=== PATIENT | female | born 1985 | race African-American/Black ===

== ENCOUNTER 2018-09-23 20:33 | Emergency (ER) | payer OTHER ==
[~2018-09-23] VITALS: Ht 160 cm; Wt 107.5 kg
[2018-09-23 21:02] LABS: URINE BILIRUBIN NEGATIVE (Negative); URINE BLOOD NEGATIVE (Negative); URINE CLARITY SL CLOUDY; URINE COLOR YELLOW; URINE GLUCOSE-RANDOM* NEGATIVE (Negative); URINE KETONES NEGATIVE (Negative); URINE LEUKOCYTES-REFLEX NEGATIVE (Negative); URINE NITRITE-REFLEX NEGATIVE (Negative); URINE PROTEIN (DIPSTICK) NEGATIVE (Negative); URINE SPECIFIC GRAVITY >= 1.030 (1.005-1.035); URINE UROBILINOGEN 0.2 E.U./dl (0.2-1.0)
[2018-09-23 22:45] VITALS: BP 131/86
== END 2018-09-23 22:46 | disposition home or self-care (01) ==
LOC: ER 20:33
PROVIDERS: Emergency Medicine
DX: O26.851 Spotting complicating pregnancy, first trimester (principal); O26.891 Other specified pregnancy related conditions, first trimester; M54.9 Dorsalgia, unspecified; O00.01 Abdominal pregnancy with intrauterine pregnancy; Z3A.12 12 weeks gestation of pregnancy

== ENCOUNTER 2019-07-10 17:34 | Emergency (ER) | payer OTHER ==
[~2019-07-10] VITALS: Ht 160 cm; Wt 107.0 kg
[2019-07-10] MEDS ORDERED: NAPRELAN375 MG PO (19:22)
[2019-07-10] MEDS ORDERED: FLEXERIL PO (19:22)
[2019-07-10] MEDS ORDERED: PREDNISONE 10 M10 M1 PO (19:22)
[2019-07-10 19:28] VITALS: BP 124/86
== END 2019-07-10 19:31 | disposition home or self-care (01) ==
LOC: ER 17:34
DX: M54.5 Low back pain (principal); Z86.2 Personal history of diseases of the blood and blood-forming organs and certain disorders involving the immune mechanism; Z88.6 Allergy status to analgesic agent

== ENCOUNTER 2019-09-29 18:15 | Emergency (ER) | payer OTHER ==
[~2019-09-29] VITALS: Ht 160 cm; Wt 111.1 kg
[~2019-09-29 18:15] MED LIST: FLEXERIL PO; NAPRELAN375 MG PO; PREDNISONE 10 M10 M1 PO
[2019-09-29] MEDS ORDERED: FLEXERIL PO (18:35)
[2019-09-29] MEDS ORDERED: NORFLEX100 MG PO (18:36)
[2019-09-29] MEDS ORDERED: IBUPROFEN 600600 M1 PO (18:36)
[2019-09-29 18:42] LABS: URINE BILIRUBIN NEGATIVE (Negative); URINE BLOOD NEGATIVE (Negative); URINE CLARITY CLEAR; URINE COLOR YELLOW; URINE GLUCOSE-RANDOM* NEGATIVE (Negative); URINE KETONES NEGATIVE (Negative); URINE LEUKOCYTES-REFLEX NEGATIVE (Negative); URINE NITRITE-REFLEX NEGATIVE (Negative); URINE PROTEIN (DIPSTICK) NEGATIVE (Negative); URINE SPECIFIC GRAVITY >= 1.030 (1.005-1.035); URINE UROBILINOGEN 0.2 E.U./dl (0.2-1.0)
[2019-09-29 18:48] LABS: AMP/METHAMP Negative (Negative); BARBITURATES Negative (Negative); BENZODIAZEPINES Negative (Negative); COCAINE Negative (Negative); METHADONE Negative (Negative); OPIATES Negative (Negative); PCP Negative (Negative)
[2019-09-29] MEDS ORDERED: PREDNISONE 10 M10 MG PO (19:10)
[2019-09-29] MEDS ORDERED: NORCO 5-325 TA1 EAC1 PO (19:13)
[2019-09-29 19:34] VITALS: BP 146/96
== END 2019-09-29 19:45 | disposition home or self-care (01) ==
LOC: ER 18:15
PROVIDERS: Physician Assistant
DX: M54.42 Lumbago with sciatica, left side (principal); M54.41 Lumbago with sciatica, right side; Z88.5 Allergy status to narcotic agent; Z79.899 Other long term (current) drug therapy